=== PATIENT | female | born 1940 | race African-American/Black ===

== ENCOUNTER 2018-10-08 08:30 | Inpatient (IN) | payer OTHER ==
[~2018-10-08] VITALS: Ht 160 cm; Wt 49.9 kg
[~2018-10-08 08:30] MED LIST: ADULT ASPIRIN81 MG; CAPTOPRIL HCTZ
--- NOTE | 2018-10-08 08:58 | NUR ---
SE RECIBE PACIENTE FAMILIAR REFIERE QUE PACIENTE RESPIRABA RARO, AL TOMARSE LOS VITALES PRESENTA PRESION LESLI. NO SE OBSERVA POR DIFICULTADA A RESPIRAR AL MOMENTO. SE COLOCA EN SHEELA HASTA SER EVALUADA POR .
--- NOTE | 2018-10-08 09:26 | NUR ---
SE RECIBE PTE FEMENINA DE 78 YRS ALERTA CONCIENTE Y TRANQUILA EN CAMA CON BARANDAS ELEVADA. PTE ES EVALUADA POR EL QUIE ORDENA TRATAMIENTO LA CUAL SE EJECUTA POR . SE MANTIENE BAJO OBSERVACION POR CAMBIOS.
--- NOTE | 2018-10-08 10:20 | NUR ---
PACIENTE ALERTA Y ORIENTADA X3. SE CONECTO PACIENTE A MARCAPASO EXTERNO Y MONITOR CARDIACO CON OXIMTERIA DE PULSO. SE ADMINISTRO MEDICAMENTO BERTIN ORDEN MEDICA. SE INSERTO SONDA URINARIA BAJO MEDIDAS ESTERILES. SE REALIZO MUESTRAS DE LABORATORIO BAJO MEDIDAS ASEPTICAS. SE MANTIENE BAJO OBSERVACION POR CAMBIOS SIGNIFICATIVOS.
== END 2018-10-17 08:30 | disposition designated cancer center or children's hospital (05) | DRG 308 ==
LOC: ER 08:30 → ICU-2 14:41 → ICU 10-14 14:16
PROVIDERS: ADMIT Internal Medicine
PROC: 5A09457 Assistance with Respiratory Ventilation, 24-96 Consecutive Hours, Continuous Positive Airway Pressure (ICD-10-PCS; 2018-10-08)
PROC: 4A033R1 Measurement of Arterial Saturation, Peripheral, Percutaneous Approach (ICD-10-PCS; 2018-10-08)
PROC: 5A1223Z Performance of Cardiac Pacing, Continuous (ICD-10-PCS; principal; 2018-10-13)
DX: I44.2 Atrioventricular block, complete (principal); J80 Acute respiratory distress syndrome; J90 Pleural effusion, not elsewhere classified; E87.2 Acidosis; R65.10 Systemic inflammatory response syndrome (SIRS) of non-infectious origin without acute organ dysfunction; D72.828 Other elevated white blood cell count; Z74.01 Bed confinement status